=== PATIENT | female | born 1950 | race Caucasian/White ===

== ENCOUNTER 2017-08-20 02:29 | Emergency (ER) | payer OTHER, BC ==
[~2017-08-20] VITALS: Ht 160 cm; Wt 91.3 kg
[2017-08-20 02:30] VITALS: BP 129/49
[2017-08-20] MEDS ORDERED: LOVA20TA8 PO (02:41)
[2017-08-20] MEDS ORDERED: LOSA50TA39 PO (02:41)
[2017-08-20] MEDS ORDERED: SYN.05 PO (02:41)
[2017-08-20] MEDS ORDERED: ORE25 PO (02:41)
[2017-08-20] MEDS ORDERED: GLU500 PO (02:41)
[2017-08-20] MEDS ORDERED: ASPI81CT89 PO (02:41)
--- NOTE | 2017-08-20 02:54 | NUR ---
PT TO ER BED 11
--- NOTE | 2017-08-20 02:54 | NUR ---
66/F CAME IN ED, C/O NONPRODUCTIVE COUGH X1 WEEK. PT REPORTS SUBJECTIVE FEVER, CHILLS. PT AFEBRILE AT THIS TIME. PT REPORTS PLEURITIC CHEST DISCOMFORT WHEN COUGHING AND SORE THROAT. PT REPORTS TAKING TYLENOL AT 2200 WITH LITTLE RELIEF. HX DM, ASTHMA, BRONCHITIS. PT UNABLE TO TAKE RX INHALER DUE TO LEAVING THE RX IN [place]. PT DENIES SOB, N/V/D, DYSURIA; SKIN IS INTACT, PINK/WARM/DRY; AAOX4, PERRL, WITH EVEN AND STEADY GAIT; LUNGS CLEAR BL, BREATHING UNLABORED; HR EVEN AND REGULAR, BL PERIPHERAL PULSES PRESENT; BS ACTIVE X4, NO TENDERNESS TO PALPATION; VSS; PATIENT POSITIONED FOR COMFORT; HOB ELEVATED; BEDRAILS UP X2; BED DOWN.
--- NOTE | 2017-08-20 04:28 | NUR ---
DR OZUNA AT BEDSIDE TO EVALUATE PT. PT RESTING COMFORTABLY IN BED, VSS, ALL NEEDS MET AT THIS TIME.
[2017-08-20] MEDS ORDERED: ALBUTEROL 0.083% 2.5 MG/3 ML NEBU INH ONE (04:40)
[2017-08-20] MEDS ORDERED: methylPREDNISolone SS 125 MG/2 ML VIAL IVP ONE (04:40)
[2017-08-20] MEDS ORDERED: IPRATROPIUM 0.02% 0.5 MG/2.5 ML NEBU INH ONE (04:40)
[2017-08-20 05:55] VITALS: BP 145/82
--- NOTE | 2017-08-20 05:55 | NUR ---
Patient discharged with v/s stable. Written and verbal after care instructions given and explained. Patient alert, oriented and verbalized understanding of instructions. Ambulatory with steady gait. All questions addressed prior to discharge. ID band removed. Patient advised to follow up with PMD. Rx of ZITROMAX 250MG, ALBUTEROL, PREDNISONE 20MG; OTC ROBITUSSIN DM ADVISED PER MD given. Patient educated on indication of medication including possible reaction and side effects. Opportunity to ask questions provided and answered.
== END 2017-08-20 05:55 | disposition home or self-care (01) ==
LOC: MED 02:29
DX: J20.9 Acute bronchitis, unspecified (principal); Z88.1 Allergy status to other antibiotic agents; Z79.899 Other long term (current) drug therapy
CPT/HCPCS: 94640; 96374; 99284; J2930; J7613; J7644